=== PATIENT | female | born 1995 | race Caucasian/White ===

== ENCOUNTER 2019-02-06 08:59 | Inpatient (IN) | payer MEDICAID ==
[~2019-02-06] VITALS: Ht 160 cm; Wt 79.3 kg
[2019-02-06] MEDS ORDERED: PREN1TAB91 PO (09:37)
[2019-02-06 09:38] VITALS: BP 122/73; PULSE 85; RESP 20; Ht 160 cm; Wt 79.3 kg
[2019-02-06] MEDS ORDERED: CARBOPROST 250 MCG INJ IM PRN ×2 (10:30→22:00)
[2019-02-06] MEDS ORDERED: BUTORPHANOL 2 MG INJ IV PRN (10:30)
[2019-02-06] MEDS ORDERED: OXYTOCIN 30 UNITS/LR 500 ML IV PRN ×2 (10:30→22:00)
[2019-02-06] MEDS ORDERED: METHYLERGONOVINE 0.2 MG INJ IM PRN ×2 (10:30→22:00)
[2019-02-06] MEDS ORDERED: MISOPROSTOL 200 MCG TAB PR PRN ×2 (10:30→22:00)
[2019-02-06] MEDS ORDERED: OXYTOCIN 30 UNITS/LR 500 ML IV SCH ×4 (10:30→21:33)
[2019-02-06] MEDS ORDERED: IBUPROFEN 600 MG TAB PO PRN (10:30)
[2019-02-06] MEDS ORDERED: LIDOCAINE 1% (MPF) 30 ML INJ INJ PRN (10:30)
[2019-02-06] MEDS: LACTATED RINGER'S 1,000 ML IV SCH ×3 (10:58→20:25)
[2019-02-06] MEDS ORDERED: ALBUTEROL HFA 8 GM INHALER INH PRN (11:00)
[2019-02-06] MEDS ORDERED: AMPICILLIN 2 GM/NS (PMX) 100 ML IVPB ONE (15:00)
[2019-02-06] MEDS: OXYTOCIN 30 UNITS/LR 500 ML IV SCH ×2 (18:57→21:29)
[2019-02-06] MEDS ORDERED: AMPICILLIN 1 GM/NS (PMX) 50 ML IVPB SCH (19:00)
--- NOTE | 2019-02-06 19:42 | PREAC ---
Date/Time of Note Date/Time of Note DATE: 02/06/19 TIME: 19:41 Anesthesia Eval and Record Evaluation Time Pre-Procedure Interview DATE: 02/06/19 TIME: 19:40 Age 23 Sex female NPO: 8 hrs Preoperative diagnosis labor pain Planned procedure epidural Past Medical History Past Medical History: Includes Pulm: Asthma : Gestational diabetes (39) Surgery & Anesthesia Issues No known issue Meds Anticoagulation: No Beta Dot within 24 hr: No Reason Beta Dot not given: Pt. not on B-Dot Reported Medications Pnv95/Ferrous Fumarate/FA ( Formula Tablet) 1 Each Tablet, 1 EACH PO DAILY, TAB 02/06/19 Current Medications Lactated Ringer's 1,000 ml @ 125 mls/hr Q8H IV Last administered on 02/06/19at 18:09; Admin Dose 125 MLS/HR; Start 02/06/19 at 10:02 Butorphanol Tartrate (Stadol) 2 mg Q2H PRN IV .PAIN Last administered on 02/06/19at 16:19; Admin Dose 2 MG; Start 02/06/19 at 10:30 Lidocaine (Xylocaine 1% (Mpf)) 30 ml ONCE PRN INJ .EPISIOTOMY; Start 02/06/19 at 10:30 Oxytocin/Lactated Ringer's 500 ml @ 500 mls/hr ONCE POST IV ; Start 02/06/19 at 10:30 Oxytocin/Lactated Ringer's 500 ml @ 125 mls/hr POST IV ; Start 02/06/19 at 10:30 Ibuprofen (Motrin) 600 mg ONCE PRN PO .PAIN 1-5; Start 02/06/19 at 10:30 Oxytocin/Lactated Ringer's 500 ml @ 0 mls/hr ONCE PRN IV .VAGINAL BLEEDING; Start 02/06/19 at 10:30 Methylergonovine Maleate (Methergine) 0.2 mg ONCE PRN IM .VAGINAL BLEEDING; Start 02/06/19 at 10:30 Carboprost Tromethamine (Hemabate) 250 mcg ONCE PRN IM .VAGINAL BLEEDING; Start 02/06/19 at 10:30 Misoprostol (Cytotec) 1,000 mcg ONCE PRN NE .VAGINAL BLEEDING; Start 02/06/19 at 10:30 Albuterol (Ventolin Hfa) 2 puff Q4H RESP THERAPY PRN INH SHORTNESS OF BREATH; Start 02/06/19 at 11:00 Ampicillin 50 ml @ 100 mls/hr Q4 IVPB Last administered on 02/06/19at 18:58; Admin Dose 100 MLS/HR; Start 02/06/19 at 19:00 Oxytocin/Lactated Ringer's 500 ml @ 0 mls/hr Q0M IV ; Start 02/06/19 at 19:30 Oxytocin/Lactated Ringer's 500 ml @ 0 mls/hr FOR AUGMENTATION IV ; Start 02/06/19 at 19:30 Meds reviewed: Yes Allergies Coded Allergies: No Known Drug Allergies (Verified Allergy, Unknown, 02/06/19) Allergies Reviewed: Yes Labs/Studies Labs Reviewed: Reviewed by anesthesiologist Result Diagram: 02/06/19 1045 Laboratory Tests 02/06/19 10:45 Blood Bank Test 02/06/19 10:45 Antibody Screen NEGATIVE Blood Type B POSITIVE Rh Immune Globulin Candidate NO test: Positive Studies: ECG (n/a), CXR (n/a) Pre-procedure Exam Last vitals Vital Signs Date Temp Pulse Resp B/P (MAP) Pulse Ox O2 O2 Flow FiO2 Time Delivery Rate 02/06/19 97.9 85 20 122/73 09:38 (89) Airway: Adequate mouth opening Mallampati: Mallampati I Teeth: Normal Lung: Normal Heart: Normal ASA Physical Status ASA physical status: 2 Emergency: None Planned Anesthetic Neuraxial: Epidural Pre-operative Attestations Prior to commencing anesthesia and surgery, the patient was re-evaluated, there was verification of: *The patient's identity *The results of appropriate recent lab work and preoperative vital signs *The above evaluation not changing prior to induction *Anesthetic plan, risk benefits, alternative and complications discussed with patient/family; questions answered; patient/family understands, accepts and wishes to proceed. AHSAN WELLS MD Feb 06, 2019 19:42
[2019-02-06] MEDS ORDERED: FENTAnyl 2MCG/ML-ROPIV 0.2% 100 ML ONE (19:59)
--- NOTE | 2019-02-06 20:15 | PAC ---
Date/Time of Note Date/Time of Note DATE: 02/06/19 TIME: 20:14 Post-Anesthesia Notes Post-Anesthesia Note Last documented vital signs Vital Signs Date Temp Pulse Resp B/P (MAP) Pulse Ox O2 O2 Flow FiO2 Time Delivery Rate 02/06/19 97.9 85 20 122/73 98 20:38 (89) Activity: WNL Respiratory function: WNL Cardiovascular function: WNL Mental status: Baseline Pain reasonably controlled: Yes Hydration appropriate: Yes Nausea/Vomiting absent: No AHSAN WELLS MD Feb 06, 2019 20:15
[2019-02-06] MEDS ORDERED: FENTAnyl 2MCG/ML-ROPIV 0.2% 100 ML BAG EPI SCH (20:30)
[2019-02-06] MEDS ORDERED: NALOXONE (0.4 MG/ML) INJ IV PRN (20:30)
[2019-02-06] MEDS ORDERED: DIPHENHYDRAMINE 50 MG INJ IV PRN (20:30)
--- NOTE | 2019-02-06 21:28 | LDN ---
Date/Time of Note Date/Time of Note DATE: 02/06/19 TIME: 21:26 Delivery Summary of a vaible baby girl weighing 3800 grams or 8# 6 oz, 21" long, and with Apgars of 9/9. Weeks of Gestation 39w 2d Placenta Delivered: Spontaneously Meconium: none Episiotomy: No Perineal laceration: 0 Anesthesia type: Epidural Estimated blood loss: 100 Sponge & Needle done & correct: Yes All needle counts correct: Yes Any foreign bodies felt in the: No (vagina) Infant Delivery Information Sex Sex: female Apgars 1 Minute: 9 5 Minute: 9 Suctioning Nose & mouth suctioned at babak: Yes Delee suction performed: No Umbilical Cord Umbilical cord with: 3 Vessels Cord presentations: no nuchal cord Cord Blood was obtained: Yes Mother & Baby Disposition Disposition Mom & Baby to Maternity; Good: Yes Baby to NICU: No SOLA COLORADO MD Feb 06, 2019 21:28
[2019-02-06] MEDS: LACTATED RINGER'S 1,000 ML IV* SCH (21:33)
--- NOTE | 2019-02-06 21:33 | HP ---
Date/Time of Note Date/Time of Note DATE: 02/06/19 TIME: 21:28 OB - History Hx of Present Free Text/Dictation 23 y.o. with an IUP at 39w 2d came in with spontaneous rupture of membranes and a cervical exam of 80%/3-4 cm/-3. Estimated Due Date: Feb 11, 2019 : 3 Para: 2 Care: Good Care Ultrasounds: Normal mid trimester US Obstetrical Complications: None Medical Complications: Respiratory (asthma) Past Family/Social History * Past Medical, Surgical, Family and Obstetric Histories reviewed from chart. Blood Type: B+ Rubella: immune RPR/VDRL: Negative GBS Status: Negative HBsAG: Negative OB Admission Exam Vital Signs Vital Signs Vital Signs Date Temp Pulse Resp B/P (MAP) Pulse Ox O2 O2 Flow FiO2 Time Delivery Rate 02/06/19 97.9 85 20 122/73 09:38 (89) Physical Exam HEENT: WNL Heart: Rhythm Normal Lungs: Clear Abdomen: WNL Extremities: Normal Reflexes: Normal Cervical Dilatation: 3cm Effacement: Other (80%) Station: -3 Membranes: Ruptured Amniotic Fluid: Clear Heart Rate: 140's Accelerations: Accelerations Present Decelerations: No Decelerations Varibility: Moderate Contractions on Admission: >10 Minutes Apart Intensity: Mild Last 72 hours Lab Results CBC & BMP 02/06/19 10:45 OB Assessment/Plan Reason for admission: rupture of membranes Plan: Expectant Management SOLA COLORADO MD Feb 06, 2019 21:33
[2019-02-06] MEDS ORDERED: HYDROCODONE/APAP (5/325) TAB PO PRN (22:00)
[2019-02-06 23:25] VITALS: BP 124/84; PULSE 68; RESP 17
[2019-02-07] MEDS: IBUPROFEN 600 MG TAB PO SCH ×5 (00:26→23:38)
[2019-02-07] MEDS: LANOLIN HPA 1 PKT TOP PRN ×2 (00:26→17:16)
[2019-02-07 03:29] VITALS: BP 117/77; PULSE 73; RESP 17
[2019-02-07] MEDS: LACTATED RINGER'S 1,000 ML IV* SCH (05:33)
[2019-02-07 08:30] VITALS: BP 111/72; PULSE 87; RESP 16
--- NOTE | 2019-02-07 09:16 | PREOPHP ---
DATE OF ADMISSION: 02/06/2019 HISTORY OF PRESENT ILLNESS: This is a 23-year-old lady, 3, para 2, EDC 02/11/2019 at 39 and 2/7 weeks, admitted to labor and delivery area in labor. She had a spontaneous ruptured bag of water at 3:00 a.m. on 02/06/2019 followed by mild irregular contraction. She had care at Dr. Best 's office at [facility] and the care was uneventful. PAST PERSONAL HISTORY: No history of diabetes, TB, asthma. ALLERGIES: NO ALLERGIES. SOCIAL HISTORY: The patient does not smoke. She does not drink. MEDICATIONS: She does not take any drugs except her iron and vitamins. GYNECOLOGIC HISTORY: She had menarche at the age of 13, every 28 days interval, 3 to 4 days duration , and moderate in amount. FAMILY HISTORY: Noncontributory. OBSTETRICAL HISTORY: She is 3, para 2. Her first delivery was in 2013, second in 2015. All normal deliveries. The largest baby weighed 7 pounds. REVIEW OF SYSTEMS: CARDIOVASCULAR: No chest pains. RESPIRATORY: No cough. GASTROINTESTINAL: No diarrhea, no vomiting. GENITOURINARY: No dysuria. PHYSICAL EXAMINATION: GENERAL: Reveals a conscious, coherent lady and in no acute distress. VITAL SIGNS: Her blood pressure 120/80, pulse rate 80 per minute, respirations 16 per minute. BREASTS, HEART AND LUNGS: Within normal limits. ABDOMEN: Soft, fundic height 36 cm. heart tones 140 per minute. PELVIC: Done by me at 1:22 p.m. on 02/06/2019 revealed the cervix to be 5 cm dilated, 100% effaced, station 0 with a bag of water ruptured. EXTREMITIES: No pedal edema. ADMITTING DIAGNOSIS: 39 and 2/7 weeks intrauterine in labor. The plans of delivery were e xplained to the patient and to go for vaginal delivery. The risks, benefits, and alternatives to vag inal delivery and were explained. She wanted to go for vaginal delivery. scalp elec trodes and IPC was inserted. The patient was planned to be observed for progress of labor followed b y Pitocin augmentation if needed. Then, at around 6:00 p.m. 02/06/2019, she was noted to be 8 cm dil ated and 100% effaced and she did not receive any pain medication. Then, about a few minutes after I checked her, she wanted to go for labor epidural, which she did, and she progressed well and. The c ase was endorsed to Dr. Flanagan. Dictated By: ZULEYMA MARTINES/EDNA Conf#: [id number] DID#: [id number] CC: ZULEYMA DONNELLY MD; TAYLOR BEST MD;*End*
[2019-02-07 12:00] VITALS: BP 104/65; PULSE 74; RESP 16
[2019-02-07] MEDS ORDERED: MEASLES,MUMPS,RUBELLA VACCINE INJ SC* ONE (15:30)
[2019-02-07 15:45] VITALS: BP 100/53; PULSE 87; RESP 16
--- NOTE | 2019-02-07 19:01 | PN ---
Date/Time of Note Date/Time of Note DATE: 02/07/19 TIME: 19:00 Assessment/Plan VTE Prophylaxis Risk score (from Ns)>0 risk: 1 SCD applied (from Ns): No SCD contraindicated: low risk/ambulating Pharmacological prophylaxis: NA/contraindicated Pharm contraindication: low risk/ambulating Lines/Catheters IV [facility] Peripheral IV Assessment/Plan Assessment/Plan POST DAY 1 HOME TOMORROW RETURN TO CLINIC IN 2 WEEKS CONTINUE WITH VITAMINS OD AND FERROUS SULFATE PO TID DIET ADVISED COUNSELED INSTRUCTED CALL OFFICE IF THERE IS ANY PROBLEMS OR CONCERN Result Diagram: 02/07/19727 Results 24hrs Laboratory Tests Test 02/07/19 07:28 White Blood Count 12.8 H Red Blood Count 3.91 L Hemoglobin 12.2 Hematocrit 35.4 L Mean Corpuscular Volume 90.5 Mean Corpuscular Hemoglobin 31.2 Mean Corpuscular Hemoglobin Concent 34.5 Red Cell Distribution Width 13.2 Platelet Count 158 # Mean Platelet Volume 11.7 H Immature Granulocytes % 0.500 H Neutrophils % 77.0 Lymphocytes % 15.3 Monocytes % 6.2 Eosinophils % 0.5 Basophils % 0.5 Nucleated Red Blood Cells % 0.0 Immature Granulocytes # 0.060 H Neutrophils # 9.8 H Lymphocytes # 2.0 Monocytes # 0.8 Eosinophils # 0.1 Basophils # 0.1 Nucleated Red Blood Cells # 0.0 Subjective 24 Hr Interval Summary Free Text/Dictation FEELS GOOD, GOOD URINE OUTPUT, GOOD BOWEL MOVEMENT Exam/Review of Systems Exam Vitals Vital Signs Date Temp Pulse Resp B/P (MAP) Pulse Ox O2 O2 Flow FiO2 Time Delivery Rate 02/07/19 98.2 87 16 100/53 Room Air 15:45 (69) Intake and Output 02/06/19 02/06/19 02/07/19 1515:00 23:00 07:00 IntakeIntake Total 375 ml 700 ml 200 ml OutputOutput Total 1135 ml 1100 ml BalanceBalance 375 ml -435 ml -900 ml Exam VITAL SIGNS STABLE: YES AFEBRILE: YES BREAST NOT ENGORGED, NON-TENDER, NO APPRECIABLE MASS: YES LUNGS CLEAR, NO RALES, WHEEZES, RHONCHI: YES SINUS RHYTHM WITHOUT MURMUR: YES ABDOMEN: NON-TENDER FUNDUS: BELOW UMBILICUS BOWEL SOUNDS: PRESENT UTERUS: FIRM INTACT PERINEUM: YES LOCHIA: LIGHT DEEP TENDON REFLEXES: 0 EXTREMITIES: NO CALF TENDERNESS EDEMA SCALE: NONE Results Results 24hrs Laboratory Tests Test 02/07/19 07:28 White Blood Count 12.8 H Red Blood Count 3.91 L Hemoglobin 12.2 Hematocrit 35.4 L Mean Corpuscular Volume 90.5 Mean Corpuscular Hemoglobin 31.2 Mean Corpuscular Hemoglobin Concent 34.5 Red Cell Distribution Width 13.2 Platelet Count 158 # Mean Platelet Volume 11.7 H Immature Granulocytes % 0.500 H Neutrophils % 77.0 Lymphocytes % 15.3 Monocytes % 6.2 Eosinophils % 0.5 Basophils % 0.5 Nucleated Red Blood Cells % 0.0 Immature Granulocytes # 0.060 H Neutrophils # 9.8 H Lymphocytes # 2.0 Monocytes # 0.8 Eosinophils # 0.1 Basophils # 0.1 Nucleated Red Blood Cells # 0.0 Medications Medication Current Medications Ibuprofen (Motrin) 600 mg Q6 PO Last administered on 02/07/19at 17:17; Admin Dose 600 MG; Start 02/07/19 at 00:00 Acetaminophen/ Hydrocodone Bitart ([place] (5/325)) 1 tab Q4H PRN PO .PAIN 1-5; Start 02/06/19 at 22:00 Lanolin (Lanolin Hpa) 1 applic BEDSIDE MEDICATION PRN TOP .NIPPLES Last administered on 02/07/19at 17:16; Admin Dose 1 APPLIC; Start 02/06/19 at 22:00 Diphtheria/ Tetanus/Acell Pertussis (Adacel) 0.5 ml ONCE ONCE IM* ; Start 02/08/19 at 09:00; Stop 02/08/19 at 09:01 Oxytocin/Lactated Ringer's 500 ml @ 0 mls/hr ONCE PRN IV .VAGINAL BLEEDING; Start 02/06/19 at 22:00 Methylergonovine Maleate (Methergine) 0.2 mg ONCE PRN IM .VAGINAL BLEEDING; Start 02/06/19 at 22:00 Carboprost Tromethamine (Hemabate) 250 mcg ONCE PRN IM .VAGINAL BLEEDING; Start 02/06/19 at 22:00 Misoprostol (Cytotec) 1,000 mcg ONCE PRN [place] .VAGINAL BLEEDING; Start 02/06/19 at 22:00 ZULEYMA DONNELLY MD Feb 07, 2019 19:01
[2019-02-07 19:25] VITALS: BP 99/67; PULSE 68; RESP 19
[2019-02-08 03:25] VITALS: BP 103/59; PULSE 74; RESP 18
[2019-02-08] MEDS: IBUPROFEN 600 MG TAB PO SCH ×2 (05:38→12:28)
[2019-02-08 07:50] VITALS: BP 121/83; PULSE 61; RESP 17
[2019-02-08] MEDS ORDERED: DIPHTH/TET/ACEL PERTUSS (ADULT) 0.5 ML VIAL IM* ONE (09:00)
[2019-02-08] MEDS ORDERED: BISACODYL 10 MG SUPP PR ONE (10:00)
[2019-02-08] MEDS ORDERED: MAGNESIUM HYDROXIDE 30ML CUP PO ONE (10:00)
[2019-02-08] MEDS: LANOLIN HPA 1 PKT TOP PRN (12:29)
--- NOTE | 2019-02-09 14:37 | DELSUM ---
Delivery Summary A-C Datetime Report Generated by CPN: 02/09/2019 14:37 DELIVERY PERSONNEL Financial Systems Director: Kane Walkerde MATERNAL INFORMATION Delivery Anesthesia: Epidural Medications in Delivery: 30 UNITS OF PITOCIN WITH LR Delivery QBL (ml): 100 Placenta Cultured: No LABOR SUMMARY EDC: 02/11/2019 00:00 No. Babies in Womb: 1 Attempted: No Labor Anesthesia: Epidural LABOR INFORMATION Onset of Labor: 02/06/2019 03:00 Complete Dilatation: 02/06/2019 20:15 Oxytocin: N/A Group B Beta Strep: Negative Antibiotics # of Doses: 2 Antibiotics Time of Last Dose: 02/06/2019 19:00 Steroids Given: None Reason Steroids Not Administered: Not Applicable MEMBRANES Membranes Rupture Method: Spontaneous Rupture of Membranes: 02/06/2019 03:00 Length of Rupture (hr): 18.05 Amniotic Fluid Color: Clear Amniotic Fluid Amount: Moderate Amniotic Fluid Odor: None STAGES OF LABOR Stage 1 hr: 17 Stage 1 min: 15 Stage 2 hr: 0 Stage 2 min: 48 Stage 3 hr: 0 Stage 3 min: 4 Total Time in Labor hr: 18 Total Time in Labor min: 7 VAGINAL DELIVERY Episiotomy: None Laceration Extension: N/A Laceration Type: None Laceration Repair: Not Applicable Initial Vag Sponge Count: 10 Final Vag Sponge Count: 10 Initial Vag Sharps Count: 1 Final Vag Sharps Count: 1 Sponge Count Correct: Yes; Vaginal Sweep Performed Sharps Count Correct: Yes BABY A INFORMATION Infant Delivery Date/Time: 02/06/2019 21:03 Method of Delivery: Vaginal Born in Route : No : N/A Forceps: N/A Vacuum Extraction: N/A Shoulder Dystocia : N/A SHOULDER DYSTOCIA BABY A Delivery Date/Time: 02/06/2019 21:03 PRESENTATION/POSITION BABY A Presentation: Cephalic Cephalic Presentation: Vertex Vertex Position: Left Occipital Anterior Breech Presentation: N/A PLACENTA INFORMATION BABY A Placenta Delivery Time : 02/06/2019 21:07 Placenta Method of Delivery: Spontaneous Placenta Status: Delivered SCORES BABY A Heart Rate 1 min: >100 bpm Resp Effort 1 min: Good Cry Reflex Irritability 1 min: Cough/Sneeze/Pulls Away Muscle Tone 1 min: Active Motion Color 1 min: Body [place], Extremit Blue SCORE 1 MIN: 9 Heart Rate 5 min: >100 bpm Resp Effort 5 min: Good Cry Reflex Irritability 5 min: Cough/Sneeze/Pulls Away Muscle Tone 5 min: Active Motion Color 5 min: Body [place], Extremit Blue SCORE 5 MIN: 9 INFANT INFORMATION BABY A Gestational Age at Delivery: 39.2 Gestational Status: Full Term- 39- 40.6 Weeks Infant Outcome : Liveborn Infant Condition : Stable Sex: Female IDENTIFICATION/MEDS BABY A ID Band Number: [id number] ID Band Location: Right Leg; Left Arm Sensor Applied: Yes Sensor Number: [id number] Sensor Location : Cord Clamp Vitamin K Given : Not Given Erythromycin Given: Not Given WEIGHT/LENGTH BABY A Infant Birthweight (gm): 3800 Infant Weight (lb): 8 Weight (oz): 6 Infant Length (in): 21.00 Infant Length (cm): 53.34 CORD INFORMATION BABY A No. Cord Vessels: 3 Nuchal Cord : N/A Cord Blood Taken: Yes Infant Suction: Mouth; Nose ASSESSMENT BABY A Complications: None Physical Findings at Delivery: Within Normal Limits Infant Respirations: Appears Normal Information Technology Analyst/ALS Called : No Infant Care By: IVAN DE GUZMAN Transferred To: Remains with Mother
== END 2019-02-08 14:20 | disposition home or self-care (01) | DRG 807 ==
LOC: L-D 08:59 → OBT 08:59 → L-D 09:50 → OBT 09:52 → PP1 23:08
PROVIDERS: ADMIT Obstetrics & Gynecology; ATTEND Obstetrics & Gynecology
PROC: 10E0XZZ Delivery of Products of Conception, External Approach (ICD-10-PCS; principal; 2019-02-06)
DX: O80 Encounter for full-term uncomplicated delivery (principal); Z37.0 Single live birth; Z3A.39 39 weeks gestation of pregnancy
CPT/HCPCS: 76818; 85025; 85610; 85730; 86592; 86850; 86900; 86901; 90715; G0463; J0290; J0595; J2590; J3010; J7120